=== PATIENT | male | born 1965 | race Caucasian/White ===

== ENCOUNTER → 2021-06-09 | Outpatient (CLI) | payer BC ==
[~2021-06-09] MED LIST: BRILINTA 90 MG90 MG PO; CRESTOR40 MG PO; ECOTRIN81 MG PO; LOPRESSOR 25 MG25 MG PO; NITROGLYCERIN0.4 MG SL
== END ==
LOC: EROP 09:16
DX: U07.1 COVID-19 (principal); R05 Cough; R09.89 Other specified symptoms and signs involving the circulatory and respiratory systems
CPT/HCPCS: U0002